=== PATIENT | male | born 1960 | race Caucasian/White ===

== ENCOUNTER 2018-01-22 08:36 | Day surgery (SDC) | payer BC, SELFPAY ==
--- NOTE | 2018-01-18 15:57 | EKG12_ITS ---
Test Reason : PREOP Blood Pressure : / mmHG Vent. Rate : 086 BPM Atrial Rate : 086 BPM P-R Int : 136 ms QRS Dur : 084 ms QT Int : 372 ms P-R-T Axes : 049 -06 001 degrees QTc Int : 445 ms Normal sinus rhythm Inferior infarct , age undetermined Abnormal ECG No previous ECGs available Confirmed by AZEB BURGOS ([id number]), commissioning editor DENISE LEE ([id number] on 01/28/2018 2:22:53 PM Referred By: Andrew King Confirmed By:AZEB BURGOS
[2018-01-18 17:02] LABS: Anion Gap 8 (5-15); BUN 11 mg/dL (7-18); BUN/Creat Ratio 12.2 RATIO (10-20); Calcium,Total 8.6 mg/dL (8.5-10.1); Chloride 109 mmol/L (98-107); EST Glomerular Filtration Rate 92 mL/min (>60); Est Glom Filt Rate - Afr Amer 111 mL/min (>60); Glucose 105 mg/dL (74-106); Potassium 3.9 mmol/L (3.5-5.1); Sodium Level 141 mmol/L (136-145)
[2018-01-22 08:53] VITALS: BP 119/86; PULSE 77; RESP 16; TEMP 36.3; O2SAT 97; BMI 28.4
[2018-01-22] MEDS: Ciprofloxacin 0.3% 2.5ml Bottle 1 DRP (10:33)
[2018-01-22] MEDS: Oxymetazoline 0.05% 1 SPRAY SPRAY.BTL 15 SPRAY (10:35)
--- NOTE | 2018-01-22 10:48 | PCM.DC ---
You will use the following diet at home:: No restrictions Discharge Activity: Return to Normal Activity Allergies/Adverse Reactions: Allergies No Known Allergies Allergy (Verified 01/15/18 08:59) Medications to take at Discharge Rizatriptan Benzoate [Maxalt] 10 mg PO .X1 PRN PRN 01/15/18 Primary Care Physician: Andie Castaneda MD [Primary Care Provider] - Please Follow Up With: Andrew King MD When: 3 weeks
--- NOTE | 2018-01-22 10:49 | PCM.OPRPT ---
Problem List (1) Eustachian tube dysfunction Status: Chronic Qualifiers: Laterality: bilateral Qualified Code(s): H69.83 - Other specified disorders of Eustachian tube, bilateral Report of Operation Date of Procedure: 01/22/18 Pre-Operative Diagnosis: 1. chronic serous otitis media, right and left ear. 2. eustachian tube dysfunction, right and left Surgery/Procedure Performed:: 1. placement of pressure equalization tube, right ear. 2. eustachian tube dilation, right and left Type of Anesthesia:: General Estimated Blood Loss (mL): 1 Description of Procedure: on the day of the procedure, after appropriate informed consent was obtained, the patient was brought to the operating room and placed in supine position on the operating room table. he was placed under general endotracheal anesthesia, the tube was secured, the eyes were taped. the bilateral nasal cavities were decongested with oxymetazoline soaked pledgets. the right ear was examined with the binocular operating microscope. a speculum was placed. the tympanic membrane was viewed in its entirety and found to be intact. a radial myringotomy was made inferiorly and a T-tube was placed. floxin otic drops were instilled. a 30 degree endoscope was inserted into the left nasal cavity. the acclarent AERA system was advanced and inserted into the left eustachian tube orifice until a soft stop was felt. this was inflated to 12atm for 2 minutes and retracted. a 30 degree endoscope was inserted into the right nasal cavity. the acclarent AERA system was advanced and inserted into the left eustachian tube orifice until a soft stop was felt. this was inflated to 12atm for 2 minutes and retracted. the patient was awoken from general anesthesia and transferred to the PACU in stable condition. Grafts/Implants Used: none
[2018-01-22 11:03] VITALS: BP 119/86; BP 123/87; PULSE 86; RESP 16; TEMP 36.4; O2SAT 92
[2018-01-22 11:15] VITALS: BP 119/86; BP 128/76; PULSE 102; RESP 16; O2SAT 93
[2018-01-22 11:30] VITALS: BP 117/75; BP 119/86; PULSE 86; RESP 16; TEMP 36.6; O2SAT 92
[2018-01-22 12:30] VITALS: BP 119/86
== END 2018-01-22 12:40 | disposition home or self-care (01) ==
LOC: SDC 08:40 → AC 08:40
PROVIDERS: Family Provider Family Medicine; PCP Family Medicine; Visit Provider Otolaryngology
PROC: (CPT 69799; principal; 2018-01-22 10:30)
DX: H69.83 Other specified disorders of Eustachian tube, bilateral (principal); H65.23 Chronic serous otitis media, bilateral; H90.0 Conductive hearing loss, bilateral; G43.909 Migraine, unspecified, not intractable, without status migrainosus; K21.9 Gastro-esophageal reflux disease without esophagitis
CPT/HCPCS: 00126; 69436; C9745; 36415; 80048; 93005; J3010; J7120; J2405

== ENCOUNTER 2018-06-18 17:30 | Outpatient (RCR) | payer BC, SELFPAY ==
--- NOTE | 2018-05-14 18:50 | HP.PTEVAL ---
Patient's Visit Information WILLIE LEE is a 57 year old M referred to Physical Therapy by Alejandra Nicole, with a diagnosis of LBP. Date of Evaluation: 05/14/18 Physical Therapist: Sumit Altman DPT, OC - Visit Plan Frequency: 3x /Week Duration: 4-6 Weeks Plan: 3x/week for 4 weeks for : Monitor HEP of ext in prone with L frog leg, posture and avoid FW bending. ext exercises adn mobs to LB as needed. Core strength and postural strength and focus. ES and ice as needed. HS and hip flexor stretches. Progress HEP of stretch ROM and body mechanics. - Subjective Subjective: Extremem LBP, had MRI 2011 nad has ruptured disc adn 2 bulging discs. Goes to [facility] and got more diagnostics. DISCHARGE PLANNER wants therapy and will do MRI. Seeing docvtor because pain is shooting into L LE down toward knee. Uncomfortable to sit and drive. Daily pain all day. Worse with sitting adn standing. Pain to 8/10. Not doing any exercises at home. 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 Sitting all day. Been doing that 31 years. Does not miss work. Activities at home are normal but has pain. Riding the mower at home gets to him. getting off and up from sitting is painful. Sleep is OK. - Pain LBP and l hip Pain Intensity (Out of 10): 8 Pain Intensity Range: 5, 8 - Objective Walks I and transfers I to and fro supine and sit. L/S AROM ext mildly painful and deviates R, SB full and painfree, flexion L LB pain and mod limited. repeated ext with L frog leg increases motiona nd makes flexion more comfortable. reflexes 1/3 patella and achilles B. Sensation LE WNL to gross light touch. Strength LE 4/5 without myotomal problems. - slump and SLR but HS and hip flexors very tight. - L/S facet compression. - Goals Goal 1:: Full L/S AROm without pain Goal Time Frame: 4-6 Weeks Goal 2:: Patient report 75% improved pain to 2/10 at worst and only in LB, no referred symptoms. Goal Time Frame: 4-6 Weeks Goal 3:: I approp management including posture and approp HEP to minimize future problems. Goal Time Frame: 4-6 Weeks Goal 4:: Mow lawn and up from sitting without noticing LB. Goal Time Frame: 4-6 Weeks - Rehabilitation Potential Physical Therapy Diagnosis: LBP likely discal Rehabilitation Potential: Fair - Anticipated Interventions Patient/Client Instruction: Educate patient on: Condition, Plan of Care For the Purpose of:: To decrease pain, To increase ROM, To improve ability of physical actions for home/community/work/leisure Therapeutic Exercise to Include: Strength training, Flexibilty training, Passive ROM, Active ROM, Dynamic Lumbar Stabilization, Nichelle Exercises For the Purpose of:: To decrease pain, To increase ROM, To improve ability of physical actions for home/community/work/leisure Manual Therapy Techniques to Include: Mobilization For the Purpose of:: To decrease pain, To increase ROM, To improve ability of physical actions for home/community/work/leisure TENS: Yes Cryotherapy (ice pack, ice massage): Yes For the Purpose of:: To decrease pain Thank you for the opportunity to evaluate your patient. For Medicare and Medicare HMO plans, please review the plan of care and approve it. It will need to be FAXED BACK to us at [phone] for Medicare purposes. Please let me know if there are questions or concerns regarding this plan of care. Physician Signature: Date:
--- NOTE | 2018-08-29 11:48 | HP.PTDCNRP_ITS ---
HP - Discharge Summary (1) - Patient Information WILLIE LEE was seen in my office for initial evaluation on 05/14/18. The following Plan of Care was established for this patient: Initial Frequency: 3x /Week Initial Duration: 4-6 Weeks - Anticipated Interventions Patient/Client Instruction: Educate patient on: Condition, Plan of Care For the Purpose of:: To decrease pain, To increase ROM, To improve ability of p hysical actions for home/community/work/leisure Therapeutic Exercise to Include: Strength training, Flexibilty training, Passive ROM, Active ROM, Dynamic Lumbar Stabilization, Nichelle Exercises For the Purpose of:: To decrease pain, To increase ROM, To improve ability of physical actions for home/community/work/leisure Manual Therapy Techniques to Include: Mobilization For the Purpose of:: To decrease pain, To increase ROM, To improve ability of physical actions for home/community/work/leisure TENS: Yes Cryotherapy (ice pack, ice massage): Yes For the Purpose of:: To decrease pain This patient was last seen in our office 06/18/18. Pertinent comments regarding their Physical therapy will appear below: Pt seen for 4 visits of POC but nelgected to continue. At this point, it has been over two months and I will discontinue due to nonattendance. At this point I will be discontinuing this patient from physical therapy. I would be happy to see this patient again in the future if found appropriate by the physician. Thank you! Sumit Altman, DPT, OC
== END 2018-06-18 19:00 | disposition home or self-care (01) ==
LOC: PT 17:30
PROVIDERS: Family Provider Family Medicine; PCP Family Medicine; Visit Provider Nurse Practitioner Acute Care
DX: M48.061 Spinal stenosis, lumbar region without neurogenic claudication (principal); M43.17 Spondylolisthesis, lumbosacral region
CPT/HCPCS: 97014; 97110; 97162; G0283

== ENCOUNTER → 2020-11-02 06:34 | Outpatient (CLI) | payer BC, SELFPAY ==
[2018-09-28 11:37] VITALS: BMI 31.8
--- NOTE | 2020-11-02 08:25 | STRESSREP_ITS ---
Stress Test Report Date: 11-02-2020 Procedure: Exercise tolerance test/imaging study Indications: Chest pain Consent: Per the patient Procedure: The patient exercised on a Ran protocol for 8 minutes and 16 seconds completing Stage II and 2 minutes and 16 seconds of Stage III achieving a peak heart rate of 164 bpm (102% predicted maximal heart rate) with a peak blood pressure 172/80 mmHg and a peak MET capacity of 9 METs. The baseline ECG demonstrated normal sinus rhythm. The peak exercise ECG demonstrated no obvious ECG changes. There was a relatively rare PVC during exercise and recovery. The functional capacity was considered good. There was shortness of breath/dyspnea with associated chest discomfort during exercise with spontaneous resolution in recovery. The examination was discontinued secondary to dyspnea. Impression: 1. Technically adequate (percent predicted maximal heart rate greater than 85%) exercise tolerance test 2. Peak exercise ECG with no obvious ECG changes 3. There was a relatively rare PVC during exercise and recovery 4. Nuclear images pending Myocardial perfusion imaging study: Technique: The patient was injected with 11.7 mCi of technetium 99m Cardiolite and subsequently rest SPECT Cardiolite nuclear imaging was obtained in the horizontal long, vertical long, and short axis views. The patient exercised on a Ran protocol for 8 minutes and 16 seconds completing Stage II and 2 minutes and 16 seconds of Stage III achieving a peak heart rate of 164 bpm (102% predicted maximal heart rate) with a peak blood pressure 172/80 mmHg and a peak MET capacity of 9 METs. The patient was injected with 32.1 mCi of technetium 99m Cardiolite and subsequently stress SPECT Cardiolite nuclear imaging was obtained in the horizontal long, vertical long, and short axis views. A gated Cardiolite study at peak stress was obtained. Interpretation: Rest and stress SPECT Cardiolite nuclear imaging status post realignment, normalization, and attenuation correction, demonstrates the appearance of relative uniform tracer uptake and myocardial perfusion appearing within normal limits. There is end systolic thickening and brightening. The gated Cardiolite study demonstrates myocardial thickening and inward wall motion. The reported LVEF is 59%. Impression: 1. Rest and stress SPECT Cardiolite nuclear imaging demonstrate relative uniform tracer uptake and myocardial perfusion appearing within normal limits. 2. The gated Cardiolite study reports an LVEF of 59%. This note was generated with [employer] software. It may contain incorrect words, spelling, and punctuation that were not noted in checking the note before signing.
== END ==
PROVIDERS: PCP Family Medicine; Referring Provider Family Medicine; Visit Provider Family Medicine
DX: R07.9 Chest pain, unspecified (principal)
CPT/HCPCS: 78452; 93017; A9500; A4216

== ENCOUNTER 2021-12-13 12:27 | Emergency (ER) | payer BC, SELFPAY ==
[2021-12-13 12:28] VITALS: BP 145/87; PULSE 81; RESP 18; TEMP 36.2; O2SAT 98; BMI 28.7
--- NOTE | 2021-12-13 14:22 | EX.ED.DYSGE1 ---
HPI History of Present Illness Chief Complaint: Abd Pain Informant: patient Narrative Narrative: 61-year-old male presents the emergency department vomiting diarrhea. Patient states that on Sunday he went out and ate a piece of walleye that was baked. 2 hours later he began to have vomiting and diarrhea. This is been persistent since that time. No fevers. He states that in the past he was told that he had gallbladder sludge but no stones. No history of pancreatitis. No history of colitis. Patient denies any blood in the emesis or stool. No rashes. PFSH PFSH Home Medications ondansetron 4 mg PO Q6H PRN PRN #15 tab 12/13/21 [Rx Last Taken Unknown] ondansetron HCl 4 mg PO PRN PRN 12/13/21 [History Last Taken Unknown] Allergy/AdvReac Type Severity Reaction Status Date / Time No Known Allergies Allergy Verified 12/13/21 12:30 Social History Smoking Status: Never smoker alcohol intake: never ROS ROS ED Constitutional Constitutional ED: Denies chills, fever(s) or weight loss Eyes Eyes: Denies change in vision or diplopia ENT ENT ED: Denies ear pain, rhinorrhea or sore throat Cardiovascular Cardiovascular: Denies chest pain, orthopnea, palpitations or racing heartbeat Respiratory/Chest Respiratory/Chest: Denies cough, dyspnea or orthopnea Gastrointestinal Gastrointestinal: Reports diarrhea, nausea and vomiting; Denies abdominal pain Genitourinary Genitourinary ED: Denies dysuria, hematuria or urinary frequency Musculoskeletal Musculoskeletal: Denies arthralgias or myalgias Integumentary Denies abscess or rash Neurologic Neurologic: Denies headache(s) or weakness Psychiatric Psychiatric: Denies anxiety, depression, suicidal ideation or suicidal thoughts Endocrine Endocrinology: Denies polydipsia, polyphagia or polyuria Allergic/Immunologic Allergic/Immunologic ED: Denies mouth swelling, tongue swelling or urticaria EXAM Physical Exam Const Vital Signs: 12/13/21 12:28 Temperature 97.1 F L Temperature Source Temporal Pulse Rate 81 Respiratory Rate 18 Blood Pressure 145/87 H Blood Pressure Mean 106 Pulse Ox 98 Oxygen Delivery Method Room Air Positive well nourished and well developed General Appearance ED: well developed HEENT Reports normocephalic, head/scalp atraumatic, TM's clear and moist mucous membranes Negative for trauma Tympanic Membrane ED: Yes TM's clear Eyes PERRL and EOMs intact bilaterally Neck no lymphadenopathy, supple and no JVD Resp normal respiratory effort and clear to auscultation bilaterally Cardio regular rate, regular rhythm and no murmurs GI normal to inspection, nondistended, normoactive bowel sounds and non-tender Palpation: soft Back/Spine no CVA tenderness and normal ROM Extremity normal to inspection General Extremety ED: Negative for edema General Extremity: Negative for edema Neuro oriented x3 and CN's II-XII intact bilaterally Sensorium / Orientation: alert Motor Exam: strength 5/5 throughout Psych mental status grossly normal Mood & Affect: Negative for depressed or tearful Skin no rashes or lesions noted and no wounds MDM MDM MDM Narrative Medical decision making narrative: Patient's labs are essentially normal. He was able to produce a stool specimen but it was fairly formed. He received some IV fluids. I will can write for some Zofran. Patient will not have to wait for the results of the stool studies to be discharged. We can call in an antibiotic if they are positive and he understands this and is comfortable with the plan Lab Data Attestation: I reviewed the patient's lab results. Labs: Laboratory Results - last 24 hr 12/13/21 12/13/21 13:30 13:30 WBC 4.7 RBC 5.06 Hgb 14.7 Hct 42.3 MCV 83.6 MCH 29.1 MCHC 34.8 RDW Std Deviation 39.9 RDW Coeff of Ifrah 13.1 Plt Count 194 MPV 11.1 Immature Gran % (Auto) 0.200 Neut % (Auto) 51.5 Lymph % (Auto) 27.8 Coleman % (Auto) 11.4 H Eos % (Auto) 8.9 H Baso % (Auto) 0.2 Absolute Neuts (auto) 2.4 Absolute Lymphs (auto) 1.32 Nucleated RBC % 0 Sodium 138 Potassium 3.6 Chloride 108 H Carbon Dioxide 26.0 Anion Gap 4 L BUN 11 Creatinine 0.84 Estim Creat Clear Calc 68.32 Est GFR (MDRD) Af Amer 120 Est GFR (MDRD) Non-Af 99 BUN/Creatinine Ratio 13.1 Glucose 103 Calcium 8.4 L Total Bilirubin 0.90 AST 34 ALT 67 H Alkaline Phosphatase 47 Total Protein 7.1 Albumin 3.7 Globulin 3.4 Albumin/Globulin Ratio 1.1 Lipase 110 Discharge Plan Triage Chief Complaint: Abd Pain ED Provider: Efraín Mills Dx/Rx/DC Orders Clinical Impression: Gastroenteritis Instructions: ED Food Poison Or Gastroenteritis Prescriptions: New ondansetron [ondansetron] 4 MG tablet 4 mg PO Q6H PRN PRN (Reason: Nausea) Qty: 15 RF: 0 No Action ondansetron HCl 4 mg tablet 4 mg PO PRN PRN (Reason: Nausea) RF: 0 Primary Care Provider: Gualberto Castaneda Referrals: Gualberto Castaneda MD [Primary Care Provider] - As Needed Activity Restrictions/Additional Instructions: As discussed use stool will be sent for evaluation but the results will not be back before your discharge from the emergency department. If these are positive we will call you and call in antibiotic. Disposition Disposition: Home, Self Care
[2021-12-13] MEDS: 0.9% Normal Saline 1,000 ML 1000 ML IV (14:30)
[2021-12-13 14:33] LABS: Absolute Lymphocyte Count 1.32 X10^3/uL (0.83-4.51); Absolute Neutrophil Count 2.4 X10^3/uL (2.0-7.7); Basophil# 0.01 X10^3/uL; Basophil% 0.2 % (0-1); Eosinophil# 0.42 X10^3/uL; Eosinophils% 8.9 % (0-5); Hematocrit 42.3 % (40-54); Hemoglobin 14.7 g/dL (13.0-16.5); Lymphocyte # 1.32 X10^3/ul (0.83-4.51); Lymphocyte % 27.8 % (19-41); Mean Corp Hgb Conc 34.8 g/dL (32-36); Mean Corpuscular Hgb 29.1 pg (27.0-32.0); Mean Corpuscular Volume 83.6 fL (80-94); Mean Platelet Vol. 11.1 fl (6.2-12.0); Monocyte# 0.54 X10^3/uL; Monocyte% 11.4 % (0-10); NRBC Flagged by Analyzer 0 % (0-5); Neutrophil # 2.44 X10^3/uL (2.7-7.7); Neutrophil % 51.5 % (47-70); Platelet Count 194 K/mm3 (150-450); RBC Distribution Width CV 13.1 % (11.6-14.6); RBC Distribution Width SD 39.9 fl (35.1-43.9); Red Blood Count 5.06 M/mm3 (4.6-6.2); White Blood Count 4.7 K/mm3 (4.4-11.0)
[2021-12-13 14:45] LABS: ALB/GLOB Ratio 1.1 RATIO (0.9-2.4); AST(SGOT) 34 U/L (15-37); Alanine Aminotransfer ALT/SGPT 67 U/L (16-61); Albumin, Serum 3.7 g/dL (3.2-5.0); Alkaline Phosphatase 47 U/L (45-117); Anion Gap 4 (5-15); BUN 11 mg/dL (7-18); BUN/Creat Ratio 13.1 RATIO (10-20); Calcium,Total 8.4 mg/dL (8.5-10.1); Chloride 108 mmol/L (98-107); Creatinine, Serum 0.84 mg/dL (0.70-1.30); EST Glomerular Filtration Rate 99 mL/min (>60); Est Glom Filt Rate - Afr Amer 120 mL/min (>60); Estimated Creatinine Clearance 68.32 ml/min; Globulin 3.4 g/dL (2.2-4.2); Glucose 103 mg/dL (74-106); Lipase 110 U/L (73-393); Potassium 3.6 mmol/L (3.5-5.1); Protein, Total 7.1 g/dL (6.4-8.2); Sodium Level 138 mmol/L (136-145)
--- NOTE | 2021-12-13 20:27 | ED.RN ---
Lab called with positive stool result of norovirus. Dr De Jesus notified and states patient does not require antibiotics or any different treatment than he already received. Patient contacted via phone and was notified, patient verbalizes understanding.
== END 2021-12-13 15:41 | disposition home or self-care (01) ==
PROVIDERS: Emergency Provider Emergency Medicine; PCP Family Medicine; Visit Provider Emergency Medicine
DX: K52.9 Noninfective gastroenteritis and colitis, unspecified (principal)
CPT/HCPCS: 80053; 83630; 83690; 85025; 87506; 96360; 99284; J7030; A4216

== ENCOUNTER 2023-04-12 08:49 | Emergency (ER) | payer BC, SELFPAY ==
[2023-04-12 08:50] VITALS: BP 125/96; PULSE 82; RESP 14; TEMP 36.1; O2SAT 98; BMI 28.3
--- NOTE | 2023-04-12 09:33 | CT_ITS ---
STUDY: CT ABDOMEN AND PELVIS WITH CONTRAST REASON FOR EXAM: Male, 62 years old. Three-week history of abdominal pain and nausea. RADIATION DOSAGE (If Supplied By Facility): CTDIvol = ( 12.9 ) mGy, DLP = ( 590.6 ) mGycm TECHNIQUE: Transaxial images were obtained from the dome of the diaphragm to the symphysis pubis without oral contrast. IV 100mL Isovue-300 was administered. Sagittal and coronal images were reconstructed. Individualized dose optimization techniques were used for this CT. COMPARISON: None. FINDINGS: The visualized lung bases are unremarkable. The visualized portions of the heart are within normal limits. There is decreased attenuation of the liver consistent with steatosis. Normal gallbladder and extrahepatic biliary system. Normal spleen. Normal pancreas. Normal bilateral adrenal glands. Normal right kidney. There is a 6.8 mm calculus in the upper pole calyx of the left kidney. There is a small hiatal hernia. Normal small intestine. There are multiple colonic diverticula consistent with diverticulosis. The appendix is visualized and appears normal. There is scattered atherosclerotic calcification of the abdominal aorta, without a demonstrated aneurysm. Normal inferior vena cava. Normal retroperitoneum. Normal urinary bladder. There is enlargement of the prostate gland. The prostate measures 5.9 cm x 3.9 sinus. Small bilateral inguinal hernias containing fat. There are degenerative changes of the visualized lumbar spine. Grade 1 anterior listhesis of L5 on S1 due to spondylolysis of the pars interarticularis of the L5 vertebra. CT/Abdomen/Pelvis W IV Cont ONLY IMPRESSION: Sigmoid diverticulosis. No radiographic evidence of diverticulitis. Fatty infiltration of the liver. Nonobstructive 6.8 mm calculus in the upper pole calyx of the left kidney. Electronically Signed: Noe Nuñez MD at 11:08 EDT ,
--- NOTE | 2023-04-12 09:34 | ED.VIS.GI ---
HPI HPI - GI History of Present Illness Chief Complaint: Abd Pain Informant: patient Narrative Narrative: Patient presents with abdominal pain. Its been going on for several weeks. It generally comes on when he eats. He is not getting nausea or vomiting. He thinks his stools are a little softer and a little crm technical lead colored. He does admit that he normally eats a very healthy diet but has been eating more greasy foods recently. 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 He does state that years ago he had a HIDA scan that showed some sludge. But his pain is really epigastric and supraumbilical. Is not right upper quadrant. He is not really having the symptoms much right now. No fevers or chills. No blood in the stool. No back pain. Triage note mentions may be chest pain but he denies this to me at all in the abdomen. No trouble breathing. No diaphoresis or lightheadedness. Patient has no medical conditions and is on no meds. PFSH PFSH Medical History no medical history Allergy/AdvReac Type Severity Reaction Status Date / Time No Known Allergies Allergy Verified 04/12/23 08:50 Surgical History no surgical history Social History Smoking Status: Never smoker alcohol intake: never ROS ROS ED ROS Narrative A complete review of systems was performed and is negative except as documented in the history of present illness. Some specific details below. Constitutional: No recent fevers or chills. EYE: No visual complaints or pain. ENT: No difficulty swallowing. No swelling. No pain. CV: No chest pain or palpitations. Respiratory: No dyspnea. No hemoptysis. No difficulty taking breaths. GI: Please see history of present illness. : No frequency dysuria or hematuria. Musculoskeletal: No recent trauma. No pains. Skin: No rash. Nondiaphoretic. Neuro: No weakness or numbness. Endocrine: No polyuria or polydipsia. EXAM Physical Exam Narrative Exam Narrative: CONSTITUTIONAL: Patient is nontoxic in appearance. The patient looks comfortable. HEENT: No notable trauma. Mucous membranes moist. No sinus tenderness. No indication of pain with swallowing. EYES: No conjunctival injection. No icterus. CARDIOVASCULAR: Regular rate. Regular rhythm. No notable murmur. No JVD. RESPIRATORY: No respiratory distress. Breathing is unlabored. No wheezes. No rhonchi. No rales. No pain with a deep breath. GASTROINTESTINAL: Not distended. Bowel sounds are normal. Very minimal supraumbilical and epigastric. No guarding. No rebound. No palpable mass. No bruit. There is no tenderness of the right upper quadrant. He has a negative Bucio sign on exam. GENITOURINARY: No tenderness over the bladder. No CVA tenderness. MUSCULOSKELETAL: Atraumatic. No peripheral edema. No cord. No tenderness along the deep venous system. No asymmetry. NEUROLOGICAL: Patient is alert and appropriate. No focal deficit noted. SKIN: No noted rashes. No diaphoresis. PSYCHIATRIC: Patient is calm. Mood is appropriate. Const Vital Signs: 04/12/23 08:50 04/12/23 10:49 Temperature 97 F L Temperature Source Temporal Pulse Rate 82 79 Respiratory Rate 14 16 Blood Pressure 125/96 H 139/83 H Blood Pressure Mean 105 101 Pulse Ox 98 96 Oxygen Delivery Method Room Air Room Air MDM MDM MDM Narrative Medical decision making narrative: My independent interpretation the patient's CT of the abdomen shows kidney stone but no acute process. Final reading is similar. Patient was familiar with the stone. Patient CBC was normal. Patient's electrolytes are normal. Patient's glucose shows nonspecific mild elevation at 112. Patient's liver function test showed minimal elevation of his total bili but otherwise normal. Patient's lipase is negative Patient's urine is normal. Thinks a lot of his symptoms are coming from stress at work. He now tells me he is on a PPI. I explained he should continue on this. But he states he takes it every 2 to 3 days. I recommend he take it every day. It is reasonable he follows up with his primary physician for ongoing symptoms. We discussed reasons to return. Lab Data Labs: Laboratory Results - last 24 hr 04/12/23 04/12/23 04/12/23 09:15 09:15 09:40 WBC 5.6 RBC 5.46 Hgb 15.7 Hct 45.9 MCV 84.1 MCH 28.8 MCHC 34.2 RDW Std Deviation 40.0 RDW Coeff of Ifrah 13.2 Plt Count 201 MPV 10.7 Immature Gran % (Auto) 0.200 Neut % (Auto) 52.2 Lymph % (Auto) 27.7 Bull[place] % (Auto) 9.8 Eos % (Auto) 9.6 H Baso % (Auto) 0.5 Absolute Neuts (auto) 2.9 Absolute Lymphs (auto) 1.55 Nucleated RBC % 0 Differential Comment SCANNED Reactive Lymphocytes 1+ Sodium 139 Potassium 4.3 Chloride 107 Carbon Dioxide 27.0 Anion Gap 5 BUN 11 Creatinine 0.84 Estim Creat Clear Calc 67.45 Est GFR (MDRD) Af Amer 118 Est GFR (MDRD) Non-Af 98 BUN/Creatinine Ratio 13.0 Glucose 112 H Calcium 9.4 Total Bilirubin 1.10 H AST 24 ALT 39 Alkaline Phosphatase 62 Total Protein 7.7 Albumin 3.8 Globulin 3.9 Albumin/Globulin Ratio 1.0 Lipase 40 Urine Color Yellow Urine Clarity Clear Urine pH 6.0 Ur Specific [place] 1.020 Urine Protein Negative Urine Glucose (UA) Normal Urine Ketones Negative Urine Occult Blood 10 H Urine Nitrite Negative Urine Bilirubin Negative Urine Urobilinogen Normal Ur Leukocyte Esterase Negative Urine RBC 0-5 SEEN Urine WBC 0 SEEN Ur Squamous Epith Cells 0-5 SEEN Urine Bacteria 0 SEEN Urine Mucus 1+ Radiography Diagnostic Testing: Clinical Impression(s) from Imaging Studies Abdomen/Pelvis CT 04/12/23 09:33 IMPRESSION: Sigmoid diverticulosis. No radiographic evidence of diverticulitis. Fatty infiltration of the liver. Nonobstructive 6.8 mm calculus in the upper pole calyx of the left kidney. Electronically Signed: Noe Nuñez MD at 11:08 EDT Reading Location ID and State: [facility] / [place] , Service support , EKG Initial EKG: Comments: My independent interpretation the patient's EKG done for upper abdominal pain shows a normal sinus rhythm with overall rate at 76. No acute ST elevation or depression. No ectopy. AL interval, QRS duration and QTc are normal. The EKG is similar to a prior from 18 January 2018. Discharge Plan Triage Chief Complaint: Abd Pain ED Provider: Speedy Mazariegos Dx/Rx/DC Orders Clinical Impression: Abdominal pain Instructions: ED Abdominal Pain Unkn Cause Male... Primary Care Provider: Gualberto Castaneda Referrals: Gualberto Castaneda MD [Primary Care Provider] - As soon as possible Activity Restrictions/Additional Instructions: Continue your proton pump inhibitor Disposition Disposition: Home, Self Care Discharge Date/Time: 04/12/23 12:54
[2023-04-12 09:45] LABS: Bacteria 0 SEEN /hpf (None Seen); White Blood Cells 0 SEEN /hpf (0-5)
[2023-04-12 09:47] LABS: Absolute Lymphocyte Count 1.55 X10^3/uL (0.83-4.51); Absolute Neutrophil Count 2.9 X10^3/uL (2.0-7.7); Basophil# 0.03 X10^3/uL; Basophil% 0.5 % (0-1); Eosinophil# 0.54 X10^3/uL; Eosinophils% 9.6 % (0-5); Hematocrit 45.9 % (40-54); Hemoglobin 15.7 g/dL (13.0-16.5); Lymphocyte # 1.55 X10^3/ul (0.83-4.51); Lymphocyte % 27.7 % (19-41); Mean Corp Hgb Conc 34.2 g/dL (32-36); Mean Corpuscular Hgb 28.8 pg (27.0-32.0); Mean Corpuscular Volume 84.1 fL (80-94); Mean Platelet Vol. 10.7 fl (6.2-12.0); Monocyte# 0.55 X10^3/uL; Monocyte% 9.8 % (0-10); NRBC Flagged by Analyzer 0 % (0-5); Neutrophil # 2.92 X10^3/uL (2.7-7.7); Neutrophil % 52.2 % (47-70); POSITIVE MORPHOLOGY YES; Platelet Count 201 K/mm3 (150-450); RBC Distribution Width CV 13.2 % (11.6-14.6); Red Blood Count 5.46 M/mm3 (4.6-6.2); White Blood Count 5.6 K/mm3 (4.4-11.0)
[2023-04-12 09:57] LABS: Differential Indicated SCAN CRITERIA MET
[2023-04-12 10:03] LABS: AST(SGOT) 24 U/L (15-37); Alanine Aminotransfer ALT/SGPT 39 U/L (16-61); Albumin, Serum 3.8 g/dL (3.2-5.0); Alkaline Phosphatase 62 U/L (45-117); Anion Gap 5 (5-15); BUN 11 mg/dL (7-18); Calcium,Total 9.4 mg/dL (8.5-10.1); Chloride 107 mmol/L (98-107); Creatinine, Serum 0.84 mg/dL (0.70-1.30); EST Glomerular Filtration Rate 98 mL/min (>60); Est Glom Filt Rate - Afr Amer 118 mL/min (>60); Estimated Creatinine Clearance 67.45 ml/min; Globulin 3.9 g/dL (2.2-4.2); Glucose 112 mg/dL (74-106); Lipase 40 U/L (13-75); Potassium 4.3 mmol/L (3.5-5.1); Protein, Total 7.7 g/dL (6.4-8.2); Sodium Level 139 mmol/L (136-145)
[2023-04-12 10:05] LABS: Color, Urine Yellow (Yellow); Glucose, Dipstick Normal (Normal); Ketone-Dipstick Negative (Negative); Leukocyte Esterase-Dipstick Negative /ul (Negative); Nitrite-Dipstick Negative (Negative); Occult Blood-Urine 10 /ul (Negative); Protein-Dipstick Negative (Negative); Urine Bilirubin Dipstick Negative (Negative); Urine Clarity Clear (Clear); Urine Urobilinogen Normal (Normal)
[2023-04-12 10:14] LABS: Mucous, Urine 1+ /hpf (<or=2+); Red Blood Cells-Urine 0-5 SEEN /hpf (0-5); Squamous Epithelial Cells - UA 0-5 SEEN /hpf (0-5)
[2023-04-12 10:30] LABS: Differential Comment SCANNED; Reactive Lymphocyte 1+
[2023-04-12 10:49] VITALS: BP 139/83; PULSE 79; RESP 16; O2SAT 96
== END 2023-04-12 12:54 | disposition home or self-care (01) ==
PROVIDERS: Emergency Provider Emergency Medicine; PCP Family Medicine; Visit Provider Emergency Medicine
DX: R10.13 Epigastric pain (principal)
CPT/HCPCS: 74177; 80053; 81001; 83690; 85025; 93005; 99283; Q9967; A4216